=== PATIENT | male | born 1975 | race Two or more races ===

== ENCOUNTER 2023-12-08 14:00 | Inpatient (IN) | payer OTHER ==
[~2023-12-08] VITALS: Ht 165.1 cm; Wt 140.6 kg
[2023-12-08] MEDS: ALBUTEROL SULFATE 2.5 MG/3 ML NEBU NEB ONE (14:36)
[2023-12-08] MEDS: IPRATROPIUM BROMIDE 0.5 MG/2.5 ML NEBU NEB ONE (14:37)
[2023-12-08] MEDS ORDERED: IPRATROPIUM BROMIDE 0.5 MG/2.5 ML NEBU ONE (14:39)
[2023-12-08] MEDS ORDERED: ALBUTEROL SULFATE 2.5 MG/3 ML NEBU ONE ×2 (14:39→14:41)
[2023-12-08 14:42] VITALS: O2SAT 100
[2023-12-08] MEDS ORDERED: OXYCODONE/APAP 5-325 MG TABLET ONE (14:43)
[2023-12-08] MEDS ORDERED: CEFAZOLIN 1 G VIAL ONE (14:43)
[2023-12-08] MEDS: OXYCODONE/APAP 5-325 MG TABLET PO ONE (14:45)
[2023-12-08 14:57] VITALS: O2SAT 100
[2023-12-08 15:04] LABS: *BILIRUBIN,URIN NEGATIVE (NEGATIVE); *BLOOD, URINE 1+ (NEGATIVE); *CLARITY,URINE CLEAR (CLEAR); *COLOR,URINE YELLOW (YELLOW); *KETONES,URINE NEGATIVE (NEGATIVE); *PROTEIN,URINE NEGATIVE (NEGATIVE); BASOPHILS % (AUTO) 0.1 % (0.0-2.0); HEMATOCRIT 42.6 % (36.7-47.1); HEMOGLOBIN 13.9 g/dL (12.5-16.3); LEUKOCYTE ESTERASE ,URINE NEGATIVE (NEGATIVE); LYMPHOCYTES # (AUTO) 0.6 K/uL (0.8-4.8); LYMPHOCYTES % (AUTO) 2.1 % (20.5-51.5); MEAN CORPUSCULAR HEMOGLOBIN 28.1 uug (23.8-33.4); MEAN CORPUSCULAR HGB CONC 33 g/dL (32.5-36.3); MONOCYTES # (AUTO) 0.2 K/uL (0.1-1.30); MONOCYTES % (AUTO) 0.9 % (0.0-11.0); NEUTROPHILS # (AUTO) 27.7 K/uL (1.8-8.9); NEUTROPHILS % (AUTO) 96.9 % (38.5-71.5); NITRITE, URINE NEGATIVE (NEGATIVE); PH,URINE 8.5 (5.0-8.0); PLATELET COUNT (AUTO) 326 K/uL (152-348); RED BLOOD CELL COUNT(AUTO) 4.95 MIL/uL (4.06-5.63); RED CELL DISTRIBUTION WIDTH 15.2 % (12.1-16.2); UGLUCOSE NEGATIVE (NEGATIVE); WHITE BLOOD COUNT (AUTO) 28.6 K/uL (3.6-10.2)
[2023-12-08 15:05] LABS: DIFFERENTIAL COMMENT 1
[2023-12-08] MEDS: IV NS 1000 ML 1,000 ML IV ONE (15:06)
[2023-12-08] MEDS: CEFAZOLIN 1 G in IV DEXTROSE 5% 50 ML IV ONE (15:06)
[2023-12-08 15:17] LABS: CALCIUM 8.2 mg/dL (8.5-10.1); CREATININE 1.4 mg/dL (0.6-1.3); POTASSIUM 3.4 mmol/L (3.5-5.1)
[2023-12-08] MEDS ORDERED: POTASSIUM BICARBONATE/CIT AC 25 MEQ TABLET.EFF ONE (15:50)
[2023-12-08] MEDS: POTASSIUM BICARBONATE/CIT AC 25 MEQ TABLET.EFF PO ONE (15:53)
[2023-12-08] MEDS ORDERED: ACETAMINOPHEN 325 MG TABLET PO PRN (17:00)
[2023-12-08] MEDS ORDERED: ONDANSETRON 4 MG/2 ML VIAL IV PRN (17:00)
[2023-12-08] MEDS ORDERED: REMEDY ESSENTIAL ZINC PASTE 113 GM TP PRN (17:00)
[2023-12-08 18:22] VITALS: BP 114/69; TEMP 97.7; O2SAT 100
[2023-12-08] MEDS: IV NS 1000 ML 1,000 ML IV PRN (20:13)
[2023-12-08] MEDS: ENOXAPARIN SODIUM 40 MG/0.4 ML DISP.SYRIN SQ SCH (20:20)
[2023-12-08 20:25] VITALS: BP 108/66; TEMP 98.8; O2SAT 97
[2023-12-08] MEDS: CEFAZOLIN 1 G in IV DEXTROSE 5% 50 ML IV SCH (21:01)
[2023-12-08] MEDS ORDERED: VANCOMYCIN 1000 MG VIAL ONE (22:23)
[2023-12-08] MEDS ORDERED: VANCOMYCIN HCL 500 MG VIAL ONE (22:23)
[2023-12-08] MEDS: VANCOMYCIN HCL 1,500 MG in IV DEXTROSE 5% 500 ML IV ONE (23:17)
[2023-12-08 23:43] LABS: BACTERIA,URINE NONE SEEN /HPF (NONE SEEN); SQUAMOUS EPITHELIAL CELL,UR NONE SEEN /HPF (NONE SEEN); WBC,URINE NONE SEEN /HPF (0-3)
[2023-12-09 06:14] VITALS: BP 120/68; TEMP 98.9; O2SAT 98
[2023-12-09 07:02] LABS: BASOPHILS % (AUTO) 0.1 % (0.0-2.0); EOSINOPHILS % (AUTO) 0.1 % (0.0-7.0); HEMATOCRIT 37.4 % (36.7-47.1); HEMOGLOBIN 11.8 g/dL (12.5-16.3); LYMPHOCYTES # (AUTO) 0.8 K/uL (0.8-4.8); LYMPHOCYTES % (AUTO) 4.8 % (20.5-51.5); MEAN CORPUSCULAR HEMOGLOBIN 27.5 uug (23.8-33.4); MEAN CORPUSCULAR HGB CONC 32 g/dL (32.5-36.3); MEAN CORPUSCULAR VOLUME 86.7 fL (73.0-96.2); MONOCYTES # (AUTO) 0.7 K/uL (0.1-1.30); MONOCYTES % (AUTO) 3.8 % (0.0-11.0); NEUTROPHILS # (AUTO) 15.8 K/uL (1.8-8.9); NEUTROPHILS % (AUTO) 91.2 % (38.5-71.5); PLATELET COUNT (AUTO) 267 K/uL (152-348); RED BLOOD CELL COUNT(AUTO) 4.31 MIL/uL (4.06-5.63); RED CELL DISTRIBUTION WIDTH 15.2 % (12.1-16.2); WHITE BLOOD COUNT (AUTO) 17.3 K/uL (3.6-10.2)
[2023-12-09 07:14] LABS: DIFFERENTIAL COMMENT 1
[2023-12-09 07:22] LABS: CALCIUM 7.8 mg/dL (8.5-10.1); CREATININE 1.1 mg/dL (0.6-1.3); MAGNESIUM 1.8 mg/dL (1.8-2.4); PHOSPHOROUS 2.8 mg/dL (2.5-4.9); POTASSIUM 3.1 mmol/L (3.5-5.1)
[2023-12-09] MEDS: CEFEPIME HCL 2 GM in IV DEXTROSE 5% 100 ML IV SCH (08:21)
[2023-12-09] MEDS: VANCOMYCIN HCL 1,500 MG in IV DEXTROSE 5% 500 ML IV SCH (10:15)
[2023-12-09 11:48] VITALS: BP 123/77; TEMP 98.5; O2SAT 96
[2023-12-09] MEDS: POTASSIUM CHLORIDE 10 MEQ TAB.PRT.SR PO ONE (14:01)
[2023-12-09 16:03] VITALS: BP 118/77; TEMP 98.5; O2SAT 97
[2023-12-09 19:20] VITALS: BP 135/87; TEMP 98.1; O2SAT 96
[2023-12-10 06:10] VITALS: BP 154/82; TEMP 97.9; O2SAT 99
[2023-12-10 10:28] LABS: CALCIUM 8.4 mg/dL (8.5-10.1); CREATININE 0.9 mg/dL (0.6-1.3); POTASSIUM 3.4 mmol/L (3.5-5.1); VANCOMYCIN,TROUGH 12.8 ug/mL (10.0-20.0)
[2023-12-10 10:58] LABS: BASOPHILS % (AUTO) 0.3 % (0.0-2.0); EOSINOPHILS # (AUTO) 0.2 K/uL (0.0-0.7); EOSINOPHILS % (AUTO) 1.6 % (0.0-7.0); HEMATOCRIT 36.5 % (36.7-47.1); HEMOGLOBIN 11.9 g/dL (12.5-16.3); LYMPHOCYTES # (AUTO) 0.7 K/uL (0.8-4.8); LYMPHOCYTES % (AUTO) 7.5 % (20.5-51.5); MEAN CORPUSCULAR HEMOGLOBIN 28.4 uug (23.8-33.4); MEAN CORPUSCULAR HGB CONC 33 g/dL (32.5-36.3); MEAN CORPUSCULAR VOLUME 86.6 fL (73.0-96.2); MONOCYTES # (AUTO) 0.4 K/uL (0.1-1.30); NEUTROPHILS # (AUTO) 8.7 K/uL (1.8-8.9); NEUTROPHILS % (AUTO) 86.6 % (38.5-71.5); PLATELET COUNT (AUTO) 231 K/uL (152-348); RED BLOOD CELL COUNT(AUTO) 4.21 MIL/uL (4.06-5.63)
[2023-12-10 11:02] LABS: DIFFERENTIAL COMMENT 1
[2023-12-10 11:11] LABS: CALCIUM 8.2 mg/dL (8.5-10.1); CREATININE 0.9 mg/dL (0.6-1.3); POTASSIUM 3.4 mmol/L (3.5-5.1)
[2023-12-10] MEDS: VANCOMYCIN HCL 1,500 MG in IV DEXTROSE 5% 500 ML IV SCH (11:17)
[2023-12-10 11:54] VITALS: BP 124/65; TEMP 98; O2SAT 98
[2023-12-10] MEDS: ENSURE WITH FIBER 237 ML LIQUID (CHOCOLATE) PO SCH (14:06)
[2023-12-10 15:47] VITALS: BP 110/57; TEMP 98; O2SAT 98
[2023-12-10 20:00] VITALS: BP 128/80; TEMP 98.7; O2SAT 97
[2023-12-11 06:00] VITALS: BP 136/81; TEMP 98.5; O2SAT 98
[2023-12-11] MEDS ORDERED: LACT1CAP72 PO (08:58)
[2023-12-11] MEDS ORDERED: CLIN300C12 PO (08:58)
[2023-12-11] MEDS ORDERED: CEFEPIME HCL 2 GM in IV DEXTROSE 5% 100 ML IV SCH (14:00)
== END 2023-12-11 12:45 | disposition home or self-care (01) | DRG 720 ==
LOC: ER 14:04 → MEDSURG3 16:41
PROVIDERS: ADMIT Nurse Practitioner Acute Care; ATTEND Internal Medicine
DX: A41.9 Sepsis, unspecified organism (principal); N17.0 Acute kidney failure with tubular necrosis; Z68.43 Body mass index [BMI] 50.0-59.9, adult; L03.116 Cellulitis of left lower limb; E66.01 Morbid (severe) obesity due to excess calories; L03.115 Cellulitis of right lower limb; E87.6 Hypokalemia; D68.69 Other thrombophilia; M79.662 Pain in left lower leg; I89.0 Lymphedema, not elsewhere classified; F15.11 Other stimulant abuse, in remission
CPT/HCPCS: 36415; 71045; 83605; 83735; 84100; 85025; 87040; 93307; 94760; A4663; G0378; J0690; J0692; J1650; J3370; J3371; J3590; J7040; J7060